=== PATIENT | female | born 1945 | race Caucasian/White ===

== ENCOUNTER 2017-06-27 12:23 | Outpatient (CLI) | payer MEDICARE, BC | END 2017-06-27 12:24 | disposition home or self-care (01) | LOC: BICMAMMO 12:23 | PROVIDERS: ATTEND Family Medicine | DX: Z12.31 Encounter for screening mammogram for malignant neoplasm of breast (principal) | CPT/HCPCS: 77063; 77067 ==

== ENCOUNTER 2018-01-18 13:22 | Emergency (ER) | payer MEDICARE, BC ==
[2018-01-18 14:24] LABS: #Basophils 0.1 thou/uL (0.0-0.2); #Eosinphils 0.3 thou/uL (0.0-0.7); #Lymphocytes 1.6 thou/uL (1.20-3.40); #Monocytes 0.7 thou/uL (0.11-0.59); %Basophils 1.2 % (0.0-1.0); %Eosinophils 4.2 % (0.0-10.0); %Lymphocytes 23.6 % (21.0-51.0); %Neutrophils 61.1 % (42.0-75.0); Hemoglobin 13.5 g/dL (12.0-16.0); Mean Corpuscular HGB CONC 33.1 g/dL (32.0-36.0); Mean Corpuscular Hemoglobin 29.3 pg (27.0-31.0); Mean Corpuscular Volume 88.7 fL (78.0-98.0); Mean Platelet Volume 8.2 fL (7.4-10.4); Platelet Count 207 thou/uL (130-400); RBC Distribution Width 12.9 % (11.5-14.5); Red Blood Cell (RBC) Count 4.61 mill/uL (4.20-5.40); White Blood Cell (WBC) Count 6.6 thou/uL (4.8-10.8)
[2018-01-18] MEDS ORDERED: Meclizine HCl 25 MG TAB ONE (14:26)
[2018-01-18] MEDS ORDERED: Ondansetron HCl/PF 4 MG/2 ML Vial ONE (14:27)
[2018-01-18 14:35] LABS: Bilirubin Negative (Negative); Blood, Urine Trace (Negative); Clarity TURBID (Clear); Glucose, Urine (Dipstick) Negative (Negative); Leukocyte Negative (Negative); Nitrite Negative (Negative); Protein, Urine (Dipstick) Trace mg/dL (Neg-Trace); Specific Gravity, Urine 1.012 (1.002-1.036); Urobilinogen 0.2 mg/dL (0.2-1.0); pH, Urine 7.5 (5.0-9.0)
[2018-01-18 14:46] LABS: ALT (SGPT) 18 U/L (8-55); AST (SGOT) 26 U/L (5-34); Albumin 4.4 g/dL (3.4-4.8); Alkaline Phosphatase 63 U/L (40-150); Anion Gap 15 mmol/L (10-20); BUN (Urea Nitrogen) 15 mg/dL (9.8-20.1); Bilirubin, Total 0.4 mg/dL (0.2-1.2); Calc. Creatinine Clearance 0 mL/min (70-130); Calcium 10.4 mg/dL (7.8-10.44); Carbon Dioxide 23 mmol/L (23-31); Chloride 105 mmol/L (98-107); Estimated GFR-MDRD 76; Glucose 100 mg/dL (83-110); Potassium 3.6 mmol/L (3.5-5.1); Protein, Total 7.4 g/dL (6.0-8.3); Sodium 139 mmol/L (136-145)
[2018-01-18 14:48] LABS: Bacteria/HPF None Seen HPF (None Seen); CKMB 0.8 ng/mL (0-6.6); Hyaline Casts/LPF 7-10 HYALINE CAST LPF (0-3 Hyaline); Pathc Cast-AUWi Flag 2.32 (0-2.49); RBC/HPF 0-3 HPF (0-3); Troponin I Less than 0.010 ng/mL (< 0.028)
[2018-01-18 14:52] LABS: Renal Epithelial None Seen HPF (0-3); Transitional Epithelial NONE SEEN HPF (0-3)
--- NOTE | 2018-01-18 15:12 | CT ---
CT HEAD WITHOUT CONTRAST: Date: 01/18/18 Multiple axial tomograms obtained through the head without IV enhancement. INDICATION: Dizziness. No comparison studies. FINDINGS: The ventricles have normal size and position. There is diffuse white matter hypodensity which is abnormal. The findings are more prominent than wou ld be expected for chronic ischemic change. Other white matter etiologies must be considered. Recomme nd urologic consultation and consider MRI brain with and without contrast. There is no hemorrhage. No evidence of acute cortical infarct. IMPRESSION: Diffuse symmetric low attenuation throughout the white matter of both cerebral hemispheres. The degre e of white matter lucency is abnormal and more than expected for chronic ischemic change. Recommend n eurologic consultation. POS: CHIDI
== END 2018-01-18 16:11 | disposition home or self-care (01) ==
LOC: ERS 13:22
DX: H81.13 Benign paroxysmal vertigo, bilateral (principal); E78.5 Hyperlipidemia, unspecified; I10 Essential (primary) hypertension; F32.9 Major depressive disorder, single episode, unspecified
CPT/HCPCS: 70450; 80053; 81003; 81015; 82553; 84443; 84484; 85025; 93005; 96361; 96374; J2405

== ENCOUNTER 2018-06-28 10:22 | Outpatient (CLI) | payer MEDICARE, BC ==
--- NOTE | 2018-07-02 13:25 | MMO ---
Bilateral MAMMO Bilat Screen [facility]. CLINICAL HISTORY: Patient is 72 years old and is seen for screening. The patient has no family history of breast cancer. The patient has no personal history of cancer. VIEWS: The views performed were: bilateral craniocaudal with tomosynthesis and bilateral mediolateral oblique with tomosynthesis. FILMS COMPARED: The present examination has been compared to prior imaging studies performed at 05/25/2009, and at [facility] on 03/31/1999, 04/06/2000, 04/05/2002, 03/31/2003, 04/01/2004, 04/05/2005, 05/27/2010, 05/31/2011, 05/16/2012, 05/20/2013, 05/21/2014, 05/22/2015, 05/23/2016 and 06/27/2017. MAMMOGRAM FINDINGS: The breasts are heterogeneously dense, which could obscure a lesion on mammography. There are stable benign appearing calcifications seen in both breasts. Stable benign densities are seen in each breast. A stable mass is seen in the right breast. There are no suspicious masses, suspicious calcifications, or new areas of architectural distortion. IMPRESSION: THERE IS NO MAMMOGRAPHIC EVIDENCE OF MALIGNANCY. A ROUTINE FOLLOW-UP MAMMOGRAM IN 1 YEAR IS RECOMMENDED. THE RESULTS OF THIS EXAM WERE SENT TO THE PATIENT. ACR BI-RADS Category 2 - Benign finding MAMMOGRAPHY NOTE: 1. A negative mammogram report should not delay a biopsy if a dominant of clinically suspicious mass is present. 2. Approximately 10% to 15% of breast cancers are not detected by mammography. 3. Adenosis and dense breasts may obscure an underlying neoplasm.
== END 2018-06-28 10:23 | disposition home or self-care (01) ==
LOC: BICMAMMO 10:22
PROVIDERS: ATTEND Family Medicine
DX: Z12.31 Encounter for screening mammogram for malignant neoplasm of breast (principal)
CPT/HCPCS: 77063; 77067

== ENCOUNTER 2019-06-22 11:30 | Emergency (ER) | payer MEDICARE, BC ==
--- NOTE | 2019-06-22 13:08 | CT ---
CT head noncontrast HISTORY: Fall. Head injury. COMPARISON: 01/18/2018. FINDINGS: There is no evidence of acute intracranial hemorrhage or infarct. Prominent widespread area s of decreased density throughout the white matter of each cerebral hemisphere similar in appearance to the previous exam. There is no mass effect or shift of midline structures. No depressed skull fractures. Visualized paranasal sinuses remain well-aerated. IMPRESSION: Prominent widespread bilateral white matter gliosis is stable. No acute traumatic injury is demonstrated.
== END 2019-06-22 13:39 | disposition home or self-care (01) ==
LOC: ERS 11:30
DX: R51 Headache (principal); I10 Essential (primary) hypertension; I48.91 Unspecified atrial fibrillation; E78.5 Hyperlipidemia, unspecified; F32.9 Major depressive disorder, single episode, unspecified; Z79.899 Other long term (current) drug therapy; Z79.82 Long term (current) use of aspirin; W01.198A Fall on same level from slipping, tripping and stumbling with subsequent striking against other object, initial encounter; Y92.009 Unspecified place in unspecified non-institutional (private) residence as the place of occurrence of the external cause
CPT/HCPCS: 70450

== ENCOUNTER 2019-07-31 11:12 | Outpatient (CLI) | payer MEDICARE, BC ==
--- NOTE | 2019-07-31 11:42 | MMO ---
Bilateral MAMMO Bilat Screen [facility]. CLINICAL HISTORY: Patient is 73 years old and is seen for screening. The patient has no family history of breast cancer. The patient has no personal history of cancer. VIEWS: The views performed were: bilateral craniocaudal with tomosynthesis and bilateral mediolateral oblique with tomosynthesis. FILMS COMPARED: The present examination has been compared to prior imaging studies performed at [facility] on 05/23/2016, 06/27/2017 and 06/28/2018. This study has been interpreted with the assistance of computer-aided detection. MAMMOGRAM FINDINGS: There are scattered fibroglandular densities. Finding 1: There are stable benign appearing calcifications seen in both breasts. Finding 2: There are stable benign appearing densities seen in both breasts. There are no suspicious masses, suspicious calcifications, or new areas of architectural distortion. IMPRESSION: THERE IS NO MAMMOGRAPHIC EVIDENCE OF MALIGNANCY. A ROUTINE FOLLOW-UP MAMMOGRAM IN 1 YEAR IS RECOMMENDED. THE RESULTS OF THIS EXAM WERE SENT TO THE PATIENT. ACR BI-RADS Category 2 - Benign finding MAMMOGRAPHY NOTE: 1. A negative mammogram report should not delay a biopsy if a dominant of clinically suspicious mass is present. 2. Approximately 10% to 15% of breast cancers are not detected by mammography. 3. Adenosis and dense breasts may obscure an underlying neoplasm. Reported by: FLAKITO LIZARRAGA MD Electonically Signed: [id number]
== END 2019-07-31 11:13 | disposition home or self-care (01) ==
LOC: BICMAMMO 11:12
PROVIDERS: ATTEND Family Medicine
DX: Z12.31 Encounter for screening mammogram for malignant neoplasm of breast (principal)
CPT/HCPCS: 77063; 77067

== ENCOUNTER 2019-08-09 10:05 | Outpatient (CLI) | payer MEDICARE, BC ==
--- NOTE | 2019-08-09 14:13 | BD ---
Exam: DEXA Bone Density 08/09/19 INDICATIONS: Postmenopausal osteoporosis screening. Lumbar Spine: BMD (g/cm2) T-SCORE L1 0.745 -2.2 L2 0.695 -3.0 L3 0.750 -3.0 L4 0.769 -2.7 L1-L4 0.741 -2.8 Femoral Neck: 0.579 -2.4 Total Femur: 0.753 -1.5 Impression: 1. Bone mineral density of the lumbar spine indicates osteoporosis. 2. Bone mineral density of the femoral neck indicates osteopenia. Ten year fracture risk: Major osteoporotic fracture: 28%. Hip fracture: 8.6%. POS: AGW
== END 2019-08-09 10:06 | disposition home or self-care (01) ==
LOC: BICMAMMO 10:05
PROVIDERS: ATTEND Internal Medicine Rheumatology
DX: M81.0 Age-related osteoporosis without current pathological fracture (principal); M85.859 Other specified disorders of bone density and structure, unspecified thigh
CPT/HCPCS: 77080

== ENCOUNTER 2020-01-17 11:41 | Inpatient (IN) | payer MEDICARE, BC, OTHER ==
--- NOTE | 2020-01-17 12:10 | RAD ---
Chest one view HISTORY: Weakness and cough. COMPARISON: 12/01/2018. FINDINGS: Cardiac silhouette is magnified by projection. Pulmonary vasculature is unremarkable. Mediastinum is midline with aortic calcification. No lobar consolidation or evidence of pneumothorax. IMPRESSION : Atherosclerosis. No active cardiopulmonary abnormalities are otherwise demonstrated.
[2020-01-17 12:14] LABS: #Lymphocytes 0.5 thou/uL (1.20-3.40); #Monocytes 0.6 thou/uL (0.11-0.59); #Neutrophils 8.7 thou/uL (1.40-6.50); %Basophils 0.3 % (0.0-1.0); %Eosinophils 0.3 % (0.0-10.0); %Lymphocytes 4.6 % (21.0-51.0); %Monocytes 6.2 % (0.0-10.0); %Neutrophils 88.6 % (42.0-75.0); Hemoglobin 13.8 g/dL (12.0-16.0); Mean Corpuscular HGB CONC 32.6 g/dL (32.0-36.0); Mean Corpuscular Hemoglobin 28.8 pg (27.0-31.0); Mean Corpuscular Volume 88.3 fL (78.0-98.0); Mean Platelet Volume 9.1 fL (7.4-10.4); Platelet Count 158 thou/uL (130-400); RBC Distribution Width 13.3 % (11.5-14.5); Red Blood Cell (RBC) Count 4.78 mill/uL (4.20-5.40); White Blood Cell (WBC) Count 9.8 thou/uL (4.8-10.8)
[2020-01-17 12:47] LABS: ALT (SGPT) 21 U/L (8-55); AST (SGOT) 30 U/L (5-34); Albumin 4.3 g/dL (3.4-4.8); Alkaline Phosphatase 53 U/L (40-110); Anion Gap 12 mmol/L (10-20); BUN (Urea Nitrogen) 12 mg/dL (9.8-20.1); Bilirubin, Total 0.5 mg/dL (0.2-1.2); Calc. Creatinine Clearance 0 mL/min (70-130); Calcium 9.2 mg/dL (7.8-10.44); Carbon Dioxide 22 mmol/L (23-31); Chloride 105 mmol/L (98-107); Estimated GFR-MDRD 77; Globulin 2.4 g/dL (2.4-3.5); Glucose 137 mg/dL (83-110); Lipase 23 U/L (8-78); Potassium 3.8 mmol/L (3.5-5.1); Protein, Total 6.7 g/dL (6.0-8.3); Sodium 135 mmol/L (136-145)
[2020-01-17 13:02] LABS: Bilirubin Negative (Negative); Blood, Urine 1+ (Negative); Clarity Clear (Clear); Glucose, Urine (Dipstick) Normal (Negative); Ketone, Urine 10 mg/dL (Negative); Leukocyte 25 Leu/uL (Negative); Nitrite Negative (Negative); Protein, Urine (Dipstick) 30 mg/dL (Neg-Trace); Specific Gravity, Urine 1.027 (1.002-1.036); Squamous Epithelial 0-3 HPF (0-3); Urobilinogen Normal mg/dL (Less than 2); pH, Urine 6.5 (5.0-9.0)
[2020-01-17 13:23] LABS: Bacteria/HPF 1+ HPF (None Seen)
--- NOTE | 2020-01-17 14:16 | CT ---
CT HEAD WITHOUT IV CONTRAST COMPARISON: 06/22/2019 HISTORY: Headache and generalized weakness. Trouble getting words out. Nausea. TECHNIQUE: Axial CT imaging at 5 mm intervals from vertex through skull base without contrast FINDINGS: There is confluent decreased attenuation in the periventricular white matter which is nonspecific but likely reflective of severe chronic small vessel ischemic changes similar to prior study. Given degree of chronic white matter ischemic changes, a superimposed acute white matter ischemic event wou ld be difficult to exclude. There is mild cerebral volume loss not unexpected for patient's age. The ventricular system is normal in size, shape, and position for the degree of sulcal atrophy. There is no evidence of an acute cortical infarction, hemorrhage, mass effect, or midline shift. Skull base has a normal CT appearance. Visualized paranasal sinuses are clear. Osseous structures appear intact. CT head is stable compared to prior exam IMPRESSION: 1. No acute intracranial abnormality demonstrated. 2. Chronic finding unchanged from prior study.
[2020-01-17] MEDS ORDERED: Aspirin Chewable 81 MG TAB ONE (15:08)
[2020-01-17] MEDS ORDERED: hydrALAZINE 20 MG/ML VIAL SLOW IVP PRN (15:41)
[2020-01-17] MEDS ORDERED: Labetalol HCl 100 MG/20 ML VIAL SLOW IVP PRN (16:08)
[2020-01-17] MEDS ORDERED: ALPRAZolam 0.25 MG TAB PO PRN (16:10)
[2020-01-17 16:11] VITALS: BMI 29.7
[2020-01-17] MEDS ORDERED: Dronedarone HCl 400 MG TAB PO SCH (17:00)
[2020-01-17 17:24] LABS: Troponin I Less than 0.010 ng/mL (< 0.028)
--- NOTE | 2020-01-17 18:08 | ULT ---
US Carotid Doppler STANDARD History: Cerebrovascular accident Comparison: None. Findings: Real-time grayscale, color and spectral analysis of the extracranial carotid and vertebral arteries was performed. No elevated peak systolic velocities within the internal carotid arteries. Antegrade flow both verteb ral arteries. Impression: No hemodynamically significant stenosis.
[2020-01-17 20:26] LABS: Troponin I Less than 0.010 ng/mL (< 0.028)
[2020-01-17] MEDS: Apixaban 5 MG TAB PO SCH (21:15)
--- NOTE | 2020-01-17 22:51 | HP ---
CHIEF COMPLAINT: Inability to speak well. HISTORY OF PRESENT ILLNESS: The patient is a 74-year-old female with past medical history of hypothyroidism, pulmonary hypertension, hyperlipidemia, hypertension, and atrial fibrillation, who was brought to the hospital today by her family due to inability to speak clearly since waking up this morning. The patient was apparently in her usual state of health until last night where she was able to walk without problem and was speaking clearly. However, this morning, the patient was unsteady on her gait and was unable to form complete sentences and had trouble finding words. She denied chest pain, shortness of breath, palpitations, or dizziness. She also denies vertigo. The patient is on Eliquis for anticoagulation. REVIEW OF SYSTEMS: Negative except as noted in HPI. PAST MEDICAL HISTORY: Pulmonary hypertension, hypertension, leaky heart valves, hyperlipidemia, bladder spasms, atrial fibrillation, hand tremors, and hypothyroidism. PAST SURGICAL HISTORY: Cholecystectomy, hysterectomy, and thyroidectomy. SOCIAL HISTORY: The patient lives at home with her family. Denies alcohol use, illicit drug use, or smoking. ALLERGIES: THE PATIENT IS ALLERGIC TO FLAGYL, PENICILLIN, STATINS, AND SULFA. PHYSICAL EXAMINATION: GENERAL: The patient is alert and oriented x2. HEENT: Head is normocephalic and atraumatic. Extraocular muscles are intact. NECK: Supple. CHEST: Clear to auscultation bilaterally. CARDIOVASCULAR: Reveals normal S1 and S2 with regular rate and rhythm. ABDOMEN: Soft, nontender, and nondistended. NEUROLOGICAL: Examination reveals expressive aphasia with no cranial nerve abnormalities. No focal motor deficits were noted. PERTINENT DATA: CT scan of the brain shows extensive white matter changes with superimposed acute white matter ischemia not being excluded. ASSESSMENT: 1. Expressive aphasia, rule out cerebrovascular accident. 2. Hypertension. 3. Hyperlipidemia. 4. Pulmonary hypertension. 5. Hypothyroidism. PLAN: 1. The patient will be placed on the Telemetry Stroke Floor. 2. Start aspirin 325 mg orally daily. We will not initiate statins due to the patient's allergies. 3. Neuro checks q.4 hours. 4. We will allow permissive hypertension and manage with IV labetalol for systolic blood pressure greater than 220 or diastolic greater than 120. 5. Check echocardiogram, carotid duplex studies, and MRI of the brain in the morning. 6. Check lipid profile and A1c. 7. PT, OT, and Speech evaluation and treatment. 8. Consult Neurology. 9. The patient is already therapeutically anticoagulated so no more measures of DVT prophylaxis will be implemented. Job ID: [id number]
[2020-01-18 05:05] LABS: Hemoglobin A1c 5.7 % (4.0-6.0)
[2020-01-18 05:16] LABS: Cardiac Risk 2.7 (Less than 4.5)
[2020-01-18] MEDS: Levothyroxine Sodium 50 MCG TAB PO SCH (06:28)
--- NOTE | 2020-01-18 07:46 | PDOC.HOSPP ---
- Subjective Encounter Date: 01/18/20 Encounter Time: 07:44 Subjective: Patient seen and examined. No new complaints. No overnight events. Patient reports symptoms resolved, she feels her speech is baseline. Denies headache, vision changes, difficulty swallowing, no focal motor weakness. Denies chest pain, heart palpitations, SOB. Endorses some diarrhea, denies abdominal pain, N/V or dysuria. Discussed UA results and awaiting cultures. - Objective Vital Signs & Weight: Vital Signs (12 hours) Temp Pulse Resp BP Pulse Ox 01/18/20 07:35 97.9 F 77 14 136/62 96 01/18/20 04:00 99.3 F 76 21 H 163/71 H 98 01/18/20 00:00 98.9 F 82 17 131/60 96 01/17/20 20:00 99.6 F 84 23 H 153/67 H 96 Weight Weight 173 lb I&O: 01/17/20 01/18/20 01/19/20 06:59 06:59 06:59 Intake Total 400 Balance 400 Result Diagrams: 01/17/20 12:04 01/17/20 12:04 Additional Labs: Accuchecks 01/17/20 21:50 POC Glucose 139 H Hospitalist ROS - Review of Systems Constitutional: denies: fever, chills Respiratory: denies: cough, shortness of breath, hemoptysis Cardiovascular: denies: chest pain, palpitations, edema Gastrointestinal: reports: diarrhea. denies: nausea, vomiting, abdominal pain Genitourinary: denies: dysuria Neurological: denies: weakness, numbness, incoordination, change in speech - Medication Medications: Active Medications Generic Name Dose Route Start Last Admin Trade Name Freq PRN Reason Stop Dose Admin Apixaban 5 mg 01/17/20 21:00 01/17/20 21:15 Apixaban 5 Mg Tab PO 5 mg BID KANNAN Administration Levothyroxine Sodium 50 mcg 01/18/20 06:00 01/18/20 06:28 Levothyroxine Sodium 50 Mcg Tab PO 50 mcg 0600 KANNAN Administration - Exam General Appearance: NAD, awake alert Eye: anicteric sclera ENT: normocephalic atraumatic Neck: supple, symmetric Heart: RRR, no murmur, no gallops, no rubs, normal peripheral pulses Respiratory: CTAB, no wheezes, no rales, no ronchi, normal chest expansion, no tachypnea Gastrointestinal: soft, non-tender, non-distended, normal bowel sounds, no guarding, no rigidity Extremities: no cyanosis, no edema Skin: no rashes Neurological: cranial nerve grossly intact, no weakness, no focal deficits. negative: facial droop Musculoskeletal: normal tone, normal strength Psychiatric: normal affect, A&O x 3 Hosp A/P (1) TIA (transient ischemic attack) Code(s): G45.9 - TRANSIENT CEREBRAL ISCHEMIC ATTACK, UNSPECIFIED Status: Acute (2) HTN (hypertension) Code(s): I10 - ESSENTIAL (PRIMARY) HYPERTENSION Status: Chronic (3) HLD (hyperlipidemia) Code(s): E78.5 - HYPERLIPIDEMIA, UNSPECIFIED Status: Chronic (4) Pulmonary HTN Code(s): I27.20 - PULMONARY HYPERTENSION, UNSPECIFIED Status: Chronic (5) Hypothyroidism Code(s): E03.9 - HYPOTHYROIDISM, UNSPECIFIED Status: Chronic (6) Atrial fibrillation Code(s): I48.91 - UNSPECIFIED ATRIAL FIBRILLATION Status: Chronic - Plan #TIA Expressive aphasia, resolved NIH 0 MRI and echo pending Stroke team and neurology consulted continue Eliquis and baby aspirin Check b12 and folate UCX pending - patient asymptomatic, therapy according to CX. #HTN BP 163/71, no morning meds Takes metoprolol and norvasc at home. Will restart home BB continue to monitor BP. #HLD Takes home crestor. Will restart home statin. #Pulmonary HTN chronic, appears stable. #Hypothyroidism Continue home dose levothyroxine. Check TSH level. #Atrial fibrillation Currently NSR Continue home eliquis. Discussed case with Dr. Puente.
[2020-01-18] MEDS ORDERED: Aspirin 325 mg Enteric Coated Tablet PO SCH (09:00)
[2020-01-18] MEDS ORDERED: FLU VACC QS2020-21(65YR UP)/PF 240 MCG/0.7 ML SYRINGE IM ONE (09:00)
[2020-01-18] MEDS: Ubidecarenone 50 MG CAP PO SCH (10:10)
[2020-01-18] MEDS: Cholecalciferol 1,000 UNITS (25 MCG) TAB PO SCH (10:10)
[2020-01-18] MEDS: Aspirin 81 mg Enteric Coated Tablet PO SCH (10:11)
[2020-01-18] MEDS: Apixaban 5 MG TAB PO SCH ×2 (10:11→21:58)
--- NOTE | 2020-01-18 11:53 | MRI ---
MRI BRAIN NONCONTRAST: DATE: 01/18/2020 HISTORY: 74-year-old female with dysarthria FINDINGS: There is no obstructive hydrocephalus. There is no midline shift or any other evidence of mass effect . There is no extra-axial fluid collection. There are extensive, confluent T2-hyperintensities throughout the cerebral white matter consistent with severe chronic ischemic white matter changes due to microvascular atherosclerosis. These have significantly worsened compared to 06/02/2004, when there are already severe. There is diffuse brain parenchymal volume loss. There is no evidence of rec ent hemorrhage or restricted diffusion. IMPRESSION: 1) Involutional changes and very severe chronic ischemic white matter changes. 2) otherwise negative
[2020-01-18 15:24] LABS: SARS-CoV-2 MS2 Positive; SARS-CoV-2 N Gene Negative; SARS-CoV-2 S Gene Negative; SARS-CoV-2 by NAA Not Detected (NotDetected); SARS-CoV-2 orf1ab Negative
[2020-01-18] MEDS ORDERED: Rosuvastatin 5 MG TAB PO SCH (21:00)
[2020-01-19] MEDS ORDERED: Acetaminophen 500 MG TAB PO PRN (00:34)
[2020-01-19 05:02] LABS: #Basophils 0.1 thou/uL (0.0-0.2); #Monocytes 0.8 thou/uL (0.11-0.59); #Neutrophils 3.8 thou/uL (1.40-6.50); %Eosinophils 0.3 % (0.0-10.0); %Lymphocytes 17.4 % (21.0-51.0); %Monocytes 13.3 % (0.0-10.0); Hemoglobin 12.8 g/dL (12.0-16.0); Mean Corpuscular HGB CONC 33.9 g/dL (32.0-36.0); Mean Corpuscular Hemoglobin 29.4 pg (27.0-31.0); Mean Corpuscular Volume 86.7 fL (78.0-98.0); Mean Platelet Volume 8.5 fL (7.4-10.4); Platelet Count 154 thou/uL (130-400); RBC Distribution Width 13.2 % (11.5-14.5); Red Blood Cell (RBC) Count 4.36 mill/uL (4.20-5.40); White Blood Cell (WBC) Count 5.6 thou/uL (4.8-10.8)
[2020-01-19 05:22] LABS: Anion Gap 14 mmol/L (10-20); BUN (Urea Nitrogen) 14 mg/dL (9.8-20.1); Calc. Creatinine Clearance 96 mL/min (70-130); Calcium 9.1 mg/dL (7.8-10.44); Carbon Dioxide 19 mmol/L (23-31); Chloride 106 mmol/L (98-107); Estimated GFR-MDRD Greater than 90; Glucose 105 mg/dL (83-110); Sodium 136 mmol/L (136-145)
[2020-01-19 05:29] LABS: Potassium 2.6 mmol/L (3.5-5.1)
[2020-01-19 05:47] LABS: Thyroid Stimulating Hormone 1.8427 uIU/mL (0.35-4.94)
[2020-01-19] MEDS ORDERED: Electrolyte Replacement Protoc 1 EACH EACH FS PRN (05:51)
[2020-01-19] MEDS: Levothyroxine Sodium 50 MCG TAB PO SCH (05:59)
[2020-01-19] MEDS ORDERED: Potassium Chloride 20 MEQ TAB PO SCH (06:00)
[2020-01-19] MEDS: Ubidecarenone 50 MG CAP PO SCH (08:49)
[2020-01-19] MEDS: Apixaban 5 MG TAB PO SCH ×2 (08:49→21:07)
[2020-01-19] MEDS: Cholecalciferol 1,000 UNITS (25 MCG) TAB PO SCH (08:50)
[2020-01-19] MEDS: Aspirin 81 mg Enteric Coated Tablet PO SCH (08:50)
[2020-01-19 11:13] LABS: Potassium 2.9 mmol/L (3.5-5.1)
[2020-01-19] MEDS: Potassium Chloride 20 MEQ TAB PO SCH ×2 (12:49→15:57)
[2020-01-19] MEDS ORDERED: Loperamide HCl 2 MG CAP PO SCH (16:00)
--- NOTE | 2020-01-19 16:05 | PDOC.HOSPP ---
- Subjective Encounter Date: 01/19/20 Encounter Time: 16:03 Subjective: Ms. Silver was seen today in follow-up of trouble with word finding, and weakness. She says she is back to her normal self. - Objective Vital Signs & Weight: Vital Signs (12 hours) Temp Pulse Pulse Pulse Resp BP BP 01/19/20 15:45 97.4 F L 68 16 01/19/20 11:24 98.1 F 70 14 01/19/20 11:01 66 70 127/59 L 132/60 01/19/20 08:00 97.4 F L 70 18 BP Pulse Ox 01/19/20 15:45 133/60 96 01/19/20 11:24 132/60 96 01/19/20 11:01 01/19/20 08:00 168/71 H 98 Weight Weight 173 lb I&O: 01/18/20 01/19/20 01/20/20 06:59 06:59 06:59 Intake Total 400 1050 Balance 400 1050 Result Diagrams: 01/19/20 04:43 01/19/20 10:30 Hospitalist ROS - Medication Medications: Active Medications Generic Name Dose Route Start Last Admin Trade Name Freq PRN Reason Stop Dose Admin Acetaminophen 500 mg 01/19/20 00:34 01/19/20 01:02 Acetaminophen 500 Mg Tab PO 500 mg Q6H PRN Administration Fever/Mild Pain (1-3) Alprazolam 0.25 mg 01/17/20 16:10 01/18/20 10:28 Alprazolam 0.25 Mg Tab PO 0.25 mg BIDPRN PRN Administration Anxiety Apixaban 5 mg 01/17/20 21:00 01/19/20 08:49 Apixaban 5 Mg Tab PO 5 mg BID KANNAN Administration Aspirin 81 mg 01/18/20 09:00 01/19/20 08:50 Aspirin 81 Mg Enteric Coated Tablet PO 81 mg DAILY KANNAN Administration Cholecalciferol 3,000 units 01/18/20 09:00 01/19/20 08:50 Cholecalciferol 1,000 Units (25 Mcg) Tab PO 3,000 units DAILY KANNAN Administration Coenzyme Q10 200 mg 01/18/20 09:00 01/19/20 08:49 Ubidecarenone 50 Mg Cap PO 200 mg DAILY KANNAN Administration Levothyroxine Sodium 50 mcg 01/18/20 06:00 01/19/20 05:59 Levothyroxine Sodium 50 Mcg Tab PO 50 mcg 0600 KANNAN Administration Loperamide HCl 4 mg 01/19/20 16:00 01/19/20 15:57 Loperamide Hcl 2 Mg Cap PO 01/19/20 18:00 4 mg NOW KANNAN Administration Metoprolol Succinate 25 mg 01/18/20 09:00 01/19/20 08:49 Metoprolol Succinate Xl 25 Mg Tab PO 25 mg DAILY KANNAN Administration Rosuvastatin Calcium 5 mg 01/18/20 21:00 01/18/20 21:58 Rosuvastatin 5 Mg Tab PO 5 mg Q2DAYS@2100 KANNAN Administration Sertraline HCl 75 mg 01/18/20 09:00 01/19/20 08:49 Sertraline Hcl 25 Mg Tab PO 75 mg DAILY KANNAN Administration - Exam Eye: PERRL, anicteric sclera Heart: RRR, no murmur, no gallops, no rubs, normal peripheral pulses Respiratory: CTAB, no wheezes, no rales, no ronchi, normal chest expansion, no tachypnea, normal percussion Gastrointestinal: soft, non-tender, non-distended, normal bowel sounds, no palpable masses, no hepatomegaly Extremities: no cyanosis, no edema Hosp A/P (1) TIA (transient ischemic attack) Code(s): G45.9 - TRANSIENT CEREBRAL ISCHEMIC ATTACK, UNSPECIFIED Status: Acute (2) Atrial fibrillation Code(s): I48.91 - UNSPECIFIED ATRIAL FIBRILLATION Status: Chronic (3) HLD (hyperlipidemia) Code(s): E78.5 - HYPERLIPIDEMIA, UNSPECIFIED Status: Chronic (4) HTN (hypertension) Code(s): I10 - ESSENTIAL (PRIMARY) HYPERTENSION Status: Chronic (5) Hypothyroidism Code(s): E03.9 - HYPOTHYROIDISM, UNSPECIFIED Status: Chronic (6) Pulmonary HTN Code(s): I27.20 - PULMONARY HYPERTENSION, UNSPECIFIED Status: Chronic - Plan * TIA- patient is back to her baseline. She is currently on Eliquis for stroke prevention * Her LDL is not at goal. She now takes Crestor 5mg 3 times a week. Can increase this up to M-F * AFIB- stable * Hypokalemia- likely from diarrheal losses. C. Diff screen was negative- replace and check serum Magnesium * Likely home later today
--- NOTE | 2020-01-19 17:47 | PDOC.EVN ---
Event Note - Event Note Event Note: Case discussed with On-call Fishing Vessel Operator. Patient had a TIA while on Eliquis. The patient tells me she has been complaint with the medication. She is recommending getting a NAKITA to assess for left atrial appendage while she is in the hospital. Will leave her NPO tonight, and order the NAKITA for tomorrow
[2020-01-19 17:54] LABS: Potassium 4.1 mmol/L (3.5-5.1)
[2020-01-19] MEDS ORDERED: Famotidine 20 MG TAB PO SCH (21:30)
[2020-01-20] MEDS ORDERED: Sodium Chloride 0.9% 1,000 ML IV SCH
[2020-01-20 05:37] LABS: Carbon Dioxide 17 mmol/L (23-31); Chloride 111 mmol/L (98-107); Sodium 136 mmol/L (136-145)
[2020-01-20 05:38] LABS: Anion Gap 12 mmol/L (10-20); BUN (Urea Nitrogen) 16 mg/dL (9.8-20.1); Calc. Creatinine Clearance 96 mL/min (70-130); Calcium 8.8 mg/dL (7.8-10.44); Estimated GFR-MDRD Greater than 90; Glucose 97 mg/dL (83-110)
[2020-01-20 05:47] LABS: Band 16 % (5-11); Eosinophils 3 % (0-10); Hemoglobin 12.1 g/dL (12.0-16.0); Lymphocytes 28 % (21-51); MDiff Complete? YES; Mean Corpuscular HGB CONC 34.2 g/dL (32.0-36.0); Mean Corpuscular Hemoglobin 29.7 pg (27.0-31.0); Mean Corpuscular Volume 86.9 fL (78.0-98.0); Mean Platelet Volume 9.2 fL (7.4-10.4); Monocytes 12 % (0-10); Neutrophil 41 % (42-75); Platelet Count 153 thou/uL (130-400); RBC Distribution Width 13.2 % (11.5-14.5); Red Blood Cell (RBC) Count 4.09 mill/uL (4.20-5.40); White Blood Cell (WBC) Count 4.3 thou/uL (4.8-10.8)
[2020-01-20] MEDS: Levothyroxine Sodium 50 MCG TAB PO SCH (05:55)
[2020-01-20] MEDS ORDERED: Famotidine 20 MG TAB PO SCH (09:00)
--- NOTE | 2020-01-20 09:44 | CON ---
DATE OF CONSULTATION: HISTORY OF PRESENT ILLNESS: The patient is a 74-year-old woman, who presents for evaluation after having difficulty speaking and weakness. The patient has a history of paroxysmal atrial fibrillation. She is on chronic anticoagulation therapy. The patient was in her usual state of health and a few weeks ago, she had an episode of diverticulitis. The patient presented to the hospital with acute onset of extreme weakness and she had difficulty speaking. The patient denied having any chest discomfort or palpitations. PAST MEDICAL HISTORY: 1. Atrial fibrillation. 2. Hypertension. 3. Dyslipidemia. 4. Hypothyroidism. PAST SURGICAL HISTORY: Cholecystectomy, thyroidectomy, and hysterectomy. SOCIAL HISTORY: Nonsmoker. ALLERGIES: PENICILLIN, FLAGYL, AND SULFA. MEDICATIONS: On admission include: 1. Metoprolol 25 XL daily. 2. Norvasc 2.5 daily. 3. Sertraline 75 daily. 4. Rosuvastatin 5 daily. 5. Synthroid 50 mcg daily. 6. Eliquis 5 b.i.d. REVIEW OF SYSTEMS: 10-point system otherwise unremarkable. No easy bruising or bleeding or bright red blood per rectum. PHYSICAL EXAMINATION: GENERAL: Well-developed woman, in no acute distress. VITAL SIGNS: Blood pressure was 135/61. NECK: Showed no jugular venous distention. LUNGS: Clear to auscultation. HEART: Regular rate and rhythm. Normal S1 and S2. 1/6 systolic murmur. ABDOMEN: Nondistended. EXTREMITIES: Show trace edema. VASCULAR: Radial pulses 2+. LABORATORY DATA: Sodium was 136, potassium 2.6, chloride 106, bicarbonate 19, BUN 14, creatinine 0.63. Troponin less than 0.01. White blood cell count was 4.3, hemoglobin 12.1, hematocrit 35.5, platelets 133. EKG normal sinus rhythm with a nonspecific ST abnormality. Echocardiogram normal left ventricular ejection fraction 55% to 60%, mild mitral and aortic regurgitation. IMPRESSION: 1. Possible transient ischemic attack. 2. History of paroxysmal atrial fibrillation. 3. Hypertension. 4. Dyslipidemia. 5. Hypokalemia. 6. Urinary tract infection. 7. Diverticulitis. PLAN: This patient had a possible TIA. She is undergoing neurology evaluation. The patient is on chronic Eliquis and chronic anticoagulation therapy. Aspirin has been added to her medical regimen. The patient has had difficulty with lipid-lowering medication. We will try to increase the dose of her statin. We will proceed with a NAKITA to make sure there is no evidence of a PFO. From a cardiac standpoint, we will follow this patient with you through her hospitalization. Job ID: [id number] SHAYNA
--- NOTE | 2020-01-20 12:39 | CON ---
NEUROLOGY CONSULTATION DATE OF CONSULTATION: 01/20/2020 REASON FOR CONSULTATION: Transient ischemic attack. HISTORY OF PRESENT ILLNESS: Ms. Silver is a 74-year-old female with medical history significant for hypothyroidism, pulmonary hypertension, hypertension, hyperlipidemia, and atrial fibrillation, presented to the hospital on 01/17/2020 because of inability to speak clearly when she woke up in the morning. Apparently, the patient was in usual state of health the night before the admission and she was able to walk without problems and had normal speech. However, in the morning, when she woke up, she was extremely unsteady of her feet and was unable to speak in full word sentences and has trouble finding words. The patient denies focal numbness, focal weakness, nausea, vomiting, headache, chest pain, abdominal pain, vertigo, problems with swallowing, blurred vision, loss of vision, loss of consciousness, or abnormal involuntary movements associated with the episode. The symptoms resolved within 24 hours per daughter, and currently, she is back to her baseline. The patient takes Eliquis for atrial fibrillation. REVIEW OF SYSTEMS: All 14 systems were reviewed and were negative except the pertinent positives and negatives mentioned in the HPI. PAST MEDICAL HISTORY: Pulmonary hypertension, hypertension, hyperlipidemia, bladder spasms, atrial fibrillation, tremors, hypothyroidism, leaking heart valves. PAST SURGICAL HISTORY: Cholecystectomy, hysterectomy, and thyroidectomy. SOCIAL HISTORY: The patient lives at home with her . Denies smoking, alcohol, or illegal drug use. ALLERGIES: FLAGYL, PENICILLIN, STATINS, AND SULFA DRUGS. Vital Signs & Weight: Vital Signs (12 hours) Temp Pulse Resp BP Pulse Ox 01/20/20 11:36 98 F 66 16 147/67 H 97 01/20/20 07:43 97.9 F 72 16 135/61 99 01/20/20 04:00 97.9 F 69 16 128/60 97 Weight Weight 173 lb I&O: 01/19/20 01/20/20 01/21/20 06:59 06:59 06:59 Intake Total 1050 Balance 1050 Active Medications Generic Name Dose Route Start Last Admin Trade Name Freq PRN Reason Stop Dose Admin Acetaminophen 500 mg 01/19/20 00:34 01/19/20 01:02 Acetaminophen 500 Mg Tab PO 500 mg Q6H PRN Administration Fever/Mild Pain (1-3) Alprazolam 0.25 mg 01/17/20 16:10 01/18/20 10:28 Alprazolam 0.25 Mg Tab PO 0.25 mg BIDPRN PRN Administration Anxiety Apixaban 5 mg 01/17/20 21:00 01/19/20 21:07 Apixaban 5 Mg Tab PO 5 mg BID KANNAN Administration Cholecalciferol 3,000 units 01/18/20 09:00 01/19/20 08:50 Cholecalciferol 1,000 Units (25 Mcg) Tab PO 3,000 units DAILY KANNAN Administration Coenzyme Q10 200 mg 01/18/20 09:00 01/19/20 08:49 Ubidecarenone 50 Mg Cap PO 200 mg DAILY KANNAN Administration Sodium Chloride 1,000 mls @ 50 mls/hr 01/20/20 00:00 01/20/20 00:13 Normal Saline 0.9% IV 1,000 mls .Q20H KANNAN Administration Levothyroxine Sodium 50 mcg 01/18/20 06:00 01/20/20 05:55 Levothyroxine Sodium 50 Mcg Tab PO 50 mcg 0600 KANNAN Administration Metoprolol Succinate 25 mg 01/18/20 09:00 01/19/20 08:49 Metoprolol Succinate Xl 25 Mg Tab PO 25 mg DAILY KANNAN Administration Rosuvastatin Calcium 5 mg 01/18/20 21:00 01/18/20 21:58 Rosuvastatin 5 Mg Tab PO 5 mg Q2DAYS@2100 KANNAN Administration Sertraline HCl 75 mg 01/18/20 09:00 01/19/20 08:49 Sertraline Hcl 25 Mg Tab PO 75 mg DAILY KANNAN Administration Sodium Chloride 10 ml 01/17/20 15:41 01/19/20 21:07 Flush - Normal Saline 10 Ml Syringe IVF 10 ml PRN PRN Administration Saline Flush PHYSICAL EXAMINATION: Eye: PERRL, anicteric sclera Heart: RRR, no murmur, no gallops, no rubs, normal peripheral pulses Respiratory: CTAB, no wheezes, no rales, no ronchi, normal chest expansion, no tachypnea Gastrointestinal: soft, non-tender, non-distended, normal bowel sounds, no palpable masses Extremities: no cyanosis, no edema Neurological: Mental status, the patient is alert and oriented to person, place, and time. Recent and remote memory, clear. Fund of knowledge is appropriate. Speech is clear. Cranial nerves II through XII intact. Motor, muscle tone and bulk are normal. Strength 5/5 bilaterally. Sensory intact. Cerebellar, finger-nose testing intact. Gait deferred due to the patient's safety reason. DATA REVIEWED: I reviewed the CT scan, which was negative for acute intracranial pathology. MRI of the brain reviewed, which was negative for acute intracranial pathology. 2D echo showed ejection fraction of 50% to 55% and moderately dilated left atrium. Carotid Doppler did not reveal hemodynamically significant stenosis. ASSESSMENT AND PLAN: (1) TIA (transient ischemic attack) Code(s): G45.9 - TRANSIENT CEREBRAL ISCHEMIC ATTACK, UNSPECIFIED Status: Acute (2) Atrial fibrillation Code(s): I48.91 - UNSPECIFIED ATRIAL FIBRILLATION Status: Chronic (3) HLD (hyperlipidemia) Code(s): E78.5 - HYPERLIPIDEMIA, UNSPECIFIED Status: Chronic (4) HTN (hypertension) Code(s): I10 - ESSENTIAL (PRIMARY) HYPERTENSION Status: Chronic (5) Hypothyroidism Code(s): E03.9 - HYPOTHYROIDISM, UNSPECIFIED Status: Chronic (6) Pulmonary HTN Code(s): I27.20 - PULMONARY HYPERTENSION, UNSPECIFIED Status: Chronic Ms. Manju Silver is a 74-year-old female, who presented with an episode of expressive aphasia and unsteady gait with mild confusion, which resolved on its own. Currently, she is back to her baseline, most likely transient ischemic attack. MRI of the brain reviewed and was negative for acute intracranial pathology. Carotid Doppler did not reveal hemodynamically significant stenosis. 2D echo showed left ventricular ejection fraction 50% to 55%. NAKITA is recommended by Cardiology. Dr. Cassidy is currently on board for cardiology workup. Continue aspirin for secondary stroke prevention. Continue Eliquis for secondary stroke prevention and atrial fibrillation. Consider adding statin if the patient tolerates for secondary stroke prevention. Neuro checks every 4 hours. Continue home medications, telemetry. Continue medical management per primary team, PT/OT/Speech. Plan discussed in detail with the patient, daughter, and the nursing staff. We will continue to follow. Thank you for the consult. Job ID: [id number] [email or web address]
--- NOTE | 2020-01-20 12:43 | PDOC.HOSPP ---
- Subjective Encounter Date: 01/20/20 Encounter Time: 12:40 Subjective: Ms. Silver was seen today in follow-up of TIA while on Eliquis. She does not have any new complaints. - Objective Vital Signs & Weight: Vital Signs (12 hours) Temp Pulse Resp BP Pulse Ox 01/20/20 11:36 98 F 66 16 147/67 H 97 01/20/20 07:43 97.9 F 72 16 135/61 99 01/20/20 04:00 97.9 F 69 16 128/60 97 Weight Weight 173 lb I&O: 01/19/20 01/20/20 01/21/20 06:59 06:59 06:59 Intake Total 1050 Balance 1050 Result Diagrams: 01/20/20 04:33 01/20/20 04:33 Hospitalist ROS - Medication Medications: Active Medications Generic Name Dose Route Start Last Admin Trade Name Freq PRN Reason Stop Dose Admin Acetaminophen 500 mg 01/19/20 00:34 01/19/20 01:02 Acetaminophen 500 Mg Tab PO 500 mg Q6H PRN Administration Fever/Mild Pain (1-3) Alprazolam 0.25 mg 01/17/20 16:10 01/18/20 10:28 Alprazolam 0.25 Mg Tab PO 0.25 mg BIDPRN PRN Administration Anxiety Apixaban 5 mg 01/17/20 21:00 01/19/20 21:07 Apixaban 5 Mg Tab PO 5 mg BID KANNAN Administration Cholecalciferol 3,000 units 01/18/20 09:00 01/19/20 08:50 Cholecalciferol 1,000 Units (25 Mcg) Tab PO 3,000 units DAILY KANNAN Administration Coenzyme Q10 200 mg 01/18/20 09:00 01/19/20 08:49 Ubidecarenone 50 Mg Cap PO 200 mg DAILY KANNAN Administration Sodium Chloride 1,000 mls @ 50 mls/hr 01/20/20 00:00 01/20/20 00:13 Normal Saline 0.9% IV 1,000 mls .Q20H KANNAN Administration Levothyroxine Sodium 50 mcg 01/18/20 06:00 01/20/20 05:55 Levothyroxine Sodium 50 Mcg Tab PO 50 mcg 0600 KANNAN Administration Metoprolol Succinate 25 mg 01/18/20 09:00 01/19/20 08:49 Metoprolol Succinate Xl 25 Mg Tab PO 25 mg DAILY KANNAN Administration Rosuvastatin Calcium 5 mg 01/18/20 21:00 01/18/20 21:58 Rosuvastatin 5 Mg Tab PO 5 mg Q2DAYS@2100 KANNAN Administration Sertraline HCl 75 mg 01/18/20 09:00 01/19/20 08:49 Sertraline Hcl 25 Mg Tab PO 75 mg DAILY KANNAN Administration Sodium Chloride 10 ml 01/17/20 15:41 01/19/20 21:07 Flush - Normal Saline 10 Ml Syringe IVF 10 ml PRN PRN Administration Saline Flush - Exam Eye: PERRL, anicteric sclera Heart: RRR, no murmur, no gallops, no rubs, normal peripheral pulses Respiratory: CTAB, no wheezes, no rales, no ronchi, normal chest expansion, no tachypnea Gastrointestinal: soft, non-tender, non-distended, normal bowel sounds, no palpable masses Extremities: no cyanosis, no edema Neurological: no focal deficits Hosp A/P (1) TIA (transient ischemic attack) Code(s): G45.9 - TRANSIENT CEREBRAL ISCHEMIC ATTACK, UNSPECIFIED Status: Acute (2) Atrial fibrillation Code(s): I48.91 - UNSPECIFIED ATRIAL FIBRILLATION Status: Chronic (3) HLD (hyperlipidemia) Code(s): E78.5 - HYPERLIPIDEMIA, UNSPECIFIED Status: Chronic (4) HTN (hypertension) Code(s): I10 - ESSENTIAL (PRIMARY) HYPERTENSION Status: Chronic (5) Hypothyroidism Code(s): E03.9 - HYPOTHYROIDISM, UNSPECIFIED Status: Chronic (6) Pulmonary HTN Code(s): I27.20 - PULMONARY HYPERTENSION, UNSPECIFIED Status: Chronic - Plan * TIA- patient is back to her baseline. Awaiting NAKITA * Dyslipidemia- will increase Crestor to whatever her Commercial Management Accountant recommends * Hypokalemia-resolved * HTN- blood pressure is stable
[2020-01-20 15:57] VITALS: TEMP 98.1
[2020-01-20] MEDS: Ubidecarenone 50 MG CAP PO SCH (17:18)
[2020-01-20] MEDS: Cholecalciferol 1,000 UNITS (25 MCG) TAB PO SCH (17:19)
[2020-01-20] MEDS: Apixaban 5 MG TAB PO SCH (17:19)
[2020-01-20 18:06] VITALS: BP 149/65
--- NOTE | 2020-01-20 22:58 | DIS ---
DATE OF ADMISSION: 01/19/2020 DATE OF DISCHARGE: 01/20/2020 PRIMARY CARE PHYSICIAN: Joanne Shook MD DISCHARGE DISPOSITION: Home. DISCHARGE DIAGNOSES: 1. Transient ischemic attack. 2. Atrial fibrillation on Eliquis. 3. Hypertension. 4. Hypothyroidism. 5. Dyslipidemia. DISCHARGE MEDICATIONS: 1. Aspirin 81 mg p.o. daily was added to Eliquis 5 mg p.o. b.i.d. 2. Vitamin D3 of 3000 units p.o. daily. 3. Toprol-XL 25 mg p.o. daily. 4. Levothyroxine 50 mcg p.o. daily. 5. Sertraline 75 mg p.o. daily. 6. Crestor 5 mg p.o. daily. 7. CoQ10 of 200 mg p.o. daily. 8. Amlodipine 2.5 mg p.o. daily. IMAGING DONE DURING THE HOSPITAL STAY: The patient had a CT scan of the brain, which was negative for any acute intracranial abnormality. The patient had bilateral carotid Dopplers, which were negative for any hemodynamically significant stenosis. Had an MRI of the brain showing involutional changes and very severe chronic ischemic white matter changes, otherwise negative and the patient had an echocardiogram, in which the ejection fraction was estimated at 55% to 60%. There was normal right ventricular size and function. No other significant valvular disease. CODE STATUS: Full code. ALLERGIES: TO METRONIDAZOLE, MIRABEGRON, PENICILLIN, SIMVASTATIN, SOLIFENACIN, VESICARE, FLAGYL, TETANUS TOXOID, SULFA, AND MYRBETRIQ. HOSPITAL COURSE: Ms. Silver is a pleasant 74-year-old female, who presented to the emergency room with difficulty word finding as well as some difficulty with her gait. Her symptoms resolved within 24 hours. An MRI of the brain was done which was negative as well as an echo, which was essentially unremarkable. However, she has a history of atrial fibrillation and she is on Eliquis for this. The TIA occurred while she was on Eliquis and she says that she had been compliant with the medication. For this reason, her crime analyst was consulted and there was concern that she might need a transesophageal echo to rule out patent foramen ovale or a left atrial appendage. Unfortunately at the time that the procedure was planned, the machine was down and for this reason, she was discharged home. Baby aspirin was added to Eliquis. She will be seeing Dr. Cassidy in close followup within about a week so that the NAKITA can be performed. Also, her LDL was not at goal. It was 96 and the plan is to increase her Crestor to daily, where she had been taking it just Mondays, Wednesdays, and Fridays. Job ID: [id number]
== END 2020-01-20 17:45 | disposition home or self-care (01) | DRG 69 ==
LOC: ERS 11:41 → 2SE 16:03 → OBSVTOIN 01-19 11:41
PROVIDERS: ADMIT Internal Medicine; ATTEND Internal Medicine
DX: G45.9 Transient cerebral ischemic attack, unspecified (principal); N39.0 Urinary tract infection, site not specified; K57.92 Diverticulitis of intestine, part unspecified, without perforation or abscess without bleeding; I10 Essential (primary) hypertension; E78.5 Hyperlipidemia, unspecified; Z20.828 Contact with and (suspected) exposure to other viral communicable diseases; I27.20 Pulmonary hypertension, unspecified; E89.0 Postprocedural hypothyroidism; E87.6 Hypokalemia; I48.0 Paroxysmal atrial fibrillation; I08.3 Combined rheumatic disorders of mitral, aortic and tricuspid valves; Z23 Encounter for immunization; Z88.3 Allergy status to other anti-infective agents; Z88.0 Allergy status to penicillin; Z88.8 Allergy status to other drugs, medicaments and biological substances; Z90.49 Acquired absence of other specified parts of digestive tract; Z79.899 Other long term (current) drug therapy; Z79.01 Long term (current) use of anticoagulants; Z79.890 Hormone replacement therapy
CPT/HCPCS: 36415; 36416; 70450; 70551; 71045; 80048; 80053; 80061; 81003; 81015; 82607; 82746; 83036; 83690; 83735; 84443; 84484; 85025; 87086; 87324; 87449; 87635; 90471; 90662; 93005; 93306; 93880; G0008; G0378; U0003

== ENCOUNTER 2020-01-22 08:25 | Day surgery (SDC) | payer MEDICARE, BC ==
[2020-01-21 11:26] VITALS: BMI 28.0
[2020-01-22] MEDS ORDERED: PROPOFOL 40 ML ONE (10:37)
--- NOTE | 2020-01-22 15:51 | OP ---
DATE OF PROCEDURE: 01/22/2020 PROCEDURE PERFORMED: Transesophageal echocardiogram. INDICATIONS: This is a 74-year-old woman with a TIA. DESCRIPTION OF PROCEDURE: The patient was taken to the PACU. The patient was sedated by Anesthesiology. A transesophageal probe was placed into the distal esophagus and stomach. Echocardiographic images were obtained. The transesophageal probe was removed. FINDINGS: 1. Normal left ventricular systolic function. 2. Left atrial enlargement. 3. Normal mitral and aortic valves. 4. Moderate mitral regurgitation. 5. Mild aortic regurgitation. 6. Mild tricuspid regurgitation. 7. No thrombus noted in left atrium or left atrial appendage. 8. No PFO was noted by color Doppler or contrast bubble exam. IMPRESSION: No thrombus noted in the left atrium or left atrial appendage and no PFO was present. Job ID: [id number] [facility]
--- NOTE | 2020-01-22 17:32 | EKG ---
Test Reason : PREOP NAKITA Blood Pressure : / mmHG Vent. Rate : 066 BPM Atrial Rate : 066 BPM P-R Int : 144 ms QRS Dur : 078 ms QT Int : 430 ms P-R-T Axes : 000 003 052 degrees QTc Int : 450 ms Normal sinus rhythm Minimal voltage criteria for LVH, may be normal variant Borderline ECG When compared with ECG of 17-JAN-2020 12:00, (Unconfirmed) ST no longer depressed in Lateral leads Nonspecific T wave abnormality has replaced inverted T waves in Lateral leads Confirmed by DR. Bobbi KOVACS ([id number]) on 01/22/2020 5:32:11 PM Referred By: GIGNER Confirmed By:DR. Bobbi KOVACS
== END 2020-01-22 12:20 | disposition home or self-care (01) ==
LOC: CCL 08:25
PROVIDERS: ATTEND Internal Medicine Cardiovascular Disease
PROC: B24BZZ4 Ultrasonography of Heart with Aorta, Transesophageal (ICD-10-PCS; principal; 2020-01-22)
DX: G45.9 Transient cerebral ischemic attack, unspecified (principal); I08.3 Combined rheumatic disorders of mitral, aortic and tricuspid valves; I48.0 Paroxysmal atrial fibrillation; I10 Essential (primary) hypertension; E78.5 Hyperlipidemia, unspecified; E03.9 Hypothyroidism, unspecified; E87.6 Hypokalemia; N39.0 Urinary tract infection, site not specified; K57.92 Diverticulitis of intestine, part unspecified, without perforation or abscess without bleeding; Z79.01 Long term (current) use of anticoagulants; Z79.82 Long term (current) use of aspirin; Z79.899 Other long term (current) drug therapy; Z88.0 Allergy status to penicillin; Z88.1 Allergy status to other antibiotic agents; Z88.2 Allergy status to sulfonamides; Z88.7 Allergy status to serum and vaccine; Z88.8 Allergy status to other drugs, medicaments and biological substances
CPT/HCPCS: 93005; 93010; 93312; J2704

== ENCOUNTER 2020-05-09 09:48 | Emergency (ER) | payer MEDICARE, BC ==
[2020-05-09] MEDS ORDERED: Diltiazem 125 MG/25 ML ONE (09:58)
[2020-05-09 10:34] LABS: #Basophils 0.1 thou/uL (0.0-0.2); #Eosinphils 0.6 thou/uL (0.0-0.7); #Lymphocytes 1.2 thou/uL (1.20-3.40); #Monocytes 0.8 thou/uL (0.11-0.59); #Neutrophils 3.6 thou/uL (1.40-6.50); %Basophils 1.4 % (0.0-1.0); %Eosinophils 9.3 % (0.0-10.0); %Lymphocytes 18.9 % (21.0-51.0); %Monocytes 12.3 % (0.0-10.0); Hemoglobin 13.9 g/dL (12.0-16.0); Mean Corpuscular HGB CONC 33.7 g/dL (32.0-36.0); Mean Corpuscular Hemoglobin 29.3 pg (27.0-31.0); Mean Corpuscular Volume 86.9 fL (78.0-98.0); Mean Platelet Volume 8.7 fL (7.4-10.4); Platelet Count 233 thou/uL (130-400); RBC Distribution Width 13.1 % (11.5-14.5); Red Blood Cell (RBC) Count 4.77 mill/uL (4.20-5.40); White Blood Cell (WBC) Count 6.1 thou/uL (4.8-10.8)
[2020-05-09 10:58] LABS: ALT (SGPT) 14 U/L (8-55); AST (SGOT) 17 U/L (5-34); Albumin 4.2 g/dL (3.4-4.8); Alkaline Phosphatase 43 U/L (40-110); Anion Gap 14 mmol/L (10-20); BUN (Urea Nitrogen) 16 mg/dL (9.8-20.1); Bilirubin, Total 0.4 mg/dL (0.2-1.2); Calc. Creatinine Clearance 0 mL/min (70-130); Calcium 9.8 mg/dL (7.8-10.44); Carbon Dioxide 24 mmol/L (23-31); Chloride 107 mmol/L (98-107); Globulin 2.8 g/dL (2.4-3.5); Glucose 102 mg/dL (83-110); Potassium 3.7 mmol/L (3.5-5.1); Sodium 139 mmol/L (136-145)
[2020-05-09] MEDS ORDERED: PROPOFOL 20 ML ONE (11:17)
== END 2020-05-09 13:01 | disposition home or self-care (01) ==
LOC: ERS 09:48
DX: I48.91 Unspecified atrial fibrillation (principal); E03.9 Hypothyroidism, unspecified; I10 Essential (primary) hypertension; E78.5 Hyperlipidemia, unspecified; Z79.01 Long term (current) use of anticoagulants; Z79.899 Other long term (current) drug therapy
CPT/HCPCS: 71045; 80053; 84484; 85025; 92961; 93005; 96361; 96365; J2704

== ENCOUNTER 2020-08-04 14:10 | Outpatient (CLI) | payer MEDICARE, BC | END 2020-08-04 14:11 | disposition home or self-care (01) | LOC: BICMAMMO 14:10 | PROVIDERS: ATTEND Family Medicine | DX: Z12.31 Encounter for screening mammogram for malignant neoplasm of breast (principal) | CPT/HCPCS: 77063; 77067 ==

== ENCOUNTER 2020-09-07 01:37 | Inpatient (IN) | payer MEDICARE, BC ==
[2020-09-07 02:07] LABS: #Basophils 0.1 thou/uL (0.0-0.2); #Eosinphils 0.5 thou/uL (0.0-0.7); #Lymphocytes 1.8 thou/uL (1.20-3.40); #Monocytes 0.9 thou/uL (0.11-0.59); #Neutrophils 3.9 thou/uL (1.40-6.50); %Basophils 1.3 % (0.0-1.0); %Eosinophils 7.1 % (0.0-10.0); %Lymphocytes 25.1 % (21.0-51.0); %Neutrophils 54.6 % (42.0-75.0); Hemoglobin 13.9 g/dL (12.0-16.0); Mean Corpuscular HGB CONC 32.6 g/dL (32.0-36.0); Mean Corpuscular Volume 88.9 fL (78.0-98.0); Mean Platelet Volume 8.2 fL (7.4-10.4); Platelet Count 245 thou/uL (130-400); RBC Distribution Width 13.4 % (11.5-14.5); Red Blood Cell (RBC) Count 4.81 mill/uL (4.20-5.40); White Blood Cell (WBC) Count 7.1 thou/uL (4.8-10.8)
[2020-09-07 02:35] LABS: ALT (SGPT) 18 U/L (8-55); AST (SGOT) 24 U/L (5-34); Albumin 4.5 g/dL (3.4-4.8); Alkaline Phosphatase 54 U/L (40-110); Anion Gap 13 mmol/L (10-20); BUN (Urea Nitrogen) 22 mg/dL (9.8-20.1); Bilirubin, Total 0.3 mg/dL (0.2-1.2); Calc. Creatinine Clearance 0 mL/min (70-130); Calcium 10.8 mg/dL (7.8-10.44); Carbon Dioxide 24 mmol/L (23-31); Chloride 105 mmol/L (98-107); Globulin 2.9 g/dL (2.4-3.5); Glucose 105 mg/dL (83-110); Lipase 83 U/L (8-78); Potassium 4.2 mmol/L (3.5-5.1); Protein, Total 7.4 g/dL (5.8-8.1); Sodium 138 mmol/L (136-145)
[2020-09-07] MEDS ORDERED: Acetaminophen 500 MG TAB ONE (04:23)
[2020-09-07] MEDS ORDERED: Diltiazem 125 MG/25 ML ONE (04:28)
[2020-09-07] MEDS ORDERED: Ondansetron PF 4 MG/2 ML Vial IVP PRN (08:24)
[2020-09-07] MEDS ORDERED: Ondansetron ODT 4 MG TAB PO PRN (08:24)
[2020-09-07] MEDS ORDERED: Acetaminophen 325 MG TAB PO PRN (08:24)
[2020-09-07 12:09] VITALS: BMI 29.3
[2020-09-07] MEDS ORDERED: Apixaban 2.5 MG TAB PO SCH (15:45)
[2020-09-07 16:37] LABS: Bacteria/HPF None Seen HPF (None Seen); Bilirubin Negative (Negative); Blood, Urine 1+ (Negative); Clarity Clear (Clear); Glucose, Urine (Dipstick) Normal (Negative); Ketone, Urine Negative (Negative); Leukocyte Negative Leu/uL (Negative); Nitrite Negative (Negative); Protein, Urine (Dipstick) 70 mg/dL (Neg-Trace); Specific Gravity, Urine 1.023 (1.002-1.036); Squamous Epithelial None Seen HPF (0-3); Urobilinogen Normal mg/dL (Less than 2); WBC/HPF 0-3 HPF (0-3); pH, Urine 6.5 (5.0-9.0)
[2020-09-07 16:41] LABS: Urine Culture Reflex No No
[2020-09-07] MEDS ORDERED: Flecainide 50 MG TAB PO SCH ×2 (16:45→21:00)
[2020-09-07] MEDS ORDERED: Diltiazem HCl 125 MG, Admixture Fee 1 EACH in Sodium Chloride 0.9% 100 ML IVPB SCH (17:00)
[2020-09-07] MEDS: Rosuvastatin 5 MG TAB PO SCH (20:30)
[2020-09-07] MEDS: Apixaban 5 MG TAB PO SCH (20:31)
[2020-09-07] MEDS: Flecainide 50 MG TAB PO SCH (20:31)
[2020-09-07] MEDS: Aspirin Chewable 81 MG TAB PO SCH (20:31)
[2020-09-08 05:03] LABS: #Basophils 0.1 thou/uL (0.0-0.2); #Eosinphils 0.3 thou/uL (0.0-0.7); #Lymphocytes 1.8 thou/uL (1.20-3.40); #Monocytes 0.9 thou/uL (0.11-0.59); #Neutrophils 3.9 thou/uL (1.40-6.50); %Basophils 1.4 % (0.0-1.0); %Eosinophils 4.3 % (0.0-10.0); %Lymphocytes 26.3 % (21.0-51.0); %Monocytes 12.3 % (0.0-10.0); %Neutrophils 55.8 % (42.0-75.0); Hemoglobin 13.8 g/dL (12.0-16.0); Mean Corpuscular HGB CONC 33.3 g/dL (32.0-36.0); Mean Corpuscular Hemoglobin 29.3 pg (27.0-31.0); Mean Corpuscular Volume 87.8 fL (78.0-98.0); Mean Platelet Volume 8.4 fL (7.4-10.4); Platelet Count 223 thou/uL (130-400); RBC Distribution Width 13.5 % (11.5-14.5); Red Blood Cell (RBC) Count 4.73 mill/uL (4.20-5.40)
[2020-09-08 05:28] LABS: Anion Gap 11 mmol/L (10-20); BUN (Urea Nitrogen) 14 mg/dL (9.8-20.1); Calc. Creatinine Clearance 90 mL/min (70-130); Calcium 10.2 mg/dL (7.8-10.44); Carbon Dioxide 23 mmol/L (23-31); Chloride 107 mmol/L (98-107); Glucose 100 mg/dL (83-110); Lipase 31 U/L (8-78); Potassium 3.1 mmol/L (3.5-5.1); Sodium 138 mmol/L (136-145)
[2020-09-08] MEDS: Levothyroxine Sodium 50 MCG TAB PO SCH (06:03)
[2020-09-08] MEDS: Apixaban 5 MG TAB PO SCH ×2 (08:32→21:34)
[2020-09-08] MEDS: Flecainide 50 MG TAB PO SCH ×2 (08:32→21:34)
[2020-09-08] MEDS: Potassium Chloride 20 MEQ in Premix Bag 1 BAG IVPB SCH ×2 (09:42→16:50)
[2020-09-08] MEDS ORDERED: PROPOFOL 40 ML ONE (13:58)
[2020-09-08] MEDS ORDERED: PROPOFOL 200 MG/20 ML VIAL ONE (14:35)
[2020-09-08] MEDS: Aspirin Chewable 81 MG TAB PO SCH (21:34)
[2020-09-08] MEDS: Rosuvastatin 5 MG TAB PO SCH (21:34)
[2020-09-09 00:26] LABS: SARS-CoV-2 NAA Rapid Test Not Detected (NotDetected)
[2020-09-09 04:41] LABS: #Basophils 0.1 thou/uL (0.0-0.2); #Eosinphils 0.3 thou/uL (0.0-0.7); #Lymphocytes 1.8 thou/uL (1.20-3.40); #Monocytes 0.8 thou/uL (0.11-0.59); #Neutrophils 4.6 thou/uL (1.40-6.50); %Basophils 0.7 % (0.0-1.0); %Eosinophils 4.4 % (0.0-10.0); %Lymphocytes 24.1 % (21.0-51.0); %Monocytes 9.9 % (0.0-10.0); Mean Corpuscular HGB CONC 33.5 g/dL (32.0-36.0); Mean Corpuscular Hemoglobin 29.7 pg (27.0-31.0); Mean Corpuscular Volume 88.8 fL (78.0-98.0); Mean Platelet Volume 8.5 fL (7.4-10.4); Platelet Count 217 thou/uL (130-400); RBC Distribution Width 13.6 % (11.5-14.5); Red Blood Cell (RBC) Count 4.37 mill/uL (4.20-5.40); White Blood Cell (WBC) Count 7.6 thou/uL (4.8-10.8)
[2020-09-09 05:02] LABS: Anion Gap 12 mmol/L (10-20); BUN (Urea Nitrogen) 22 mg/dL (9.8-20.1); Calc. Creatinine Clearance 77 mL/min (70-130); Carbon Dioxide 22 mmol/L (23-31); Chloride 108 mmol/L (98-107); Glucose 95 mg/dL (83-110); Potassium 3.6 mmol/L (3.5-5.1); Sodium 138 mmol/L (136-145)
[2020-09-09] MEDS: Levothyroxine Sodium 50 MCG TAB PO SCH (05:20)
[2020-09-09] MEDS: Flecainide 50 MG TAB PO SCH (08:51)
[2020-09-09] MEDS: Apixaban 5 MG TAB PO SCH (08:52)
[2020-09-09 09:35] VITALS: BP 150/70; TEMP 98.9
== END 2020-09-09 11:03 | disposition home or self-care (01) | DRG 310 ==
LOC: ERS 01:37 → ERHOLD 04:33 → 2NO 11:58
PROVIDERS: ADMIT Internal Medicine; ATTEND Nurse Practitioner Family
PROC: 5A2204Z Restoration of Cardiac Rhythm, Single (ICD-10-PCS; principal; 2020-09-08)
PROC: B24BZZ4 Ultrasonography of Heart with Aorta, Transesophageal (ICD-10-PCS; 2020-09-08)
DX: I48.4 Atypical atrial flutter (principal); I10 Essential (primary) hypertension; E03.9 Hypothyroidism, unspecified; E78.5 Hyperlipidemia, unspecified; F41.9 Anxiety disorder, unspecified; R35.0 Frequency of micturition; F32.9 Major depressive disorder, single episode, unspecified; I44.30 Unspecified atrioventricular block; K21.9 Gastro-esophageal reflux disease without esophagitis; I48.0 Paroxysmal atrial fibrillation; Z20.822 Contact with and (suspected) exposure to COVID-19; E87.6 Hypokalemia; Z86.73 Personal history of transient ischemic attack (TIA), and cerebral infarction without residual deficits; Z79.01 Long term (current) use of anticoagulants; Z88.0 Allergy status to penicillin; Z88.2 Allergy status to sulfonamides; Z88.1 Allergy status to other antibiotic agents; Z88.8 Allergy status to other drugs, medicaments and biological substances; Z88.7 Allergy status to serum and vaccine; Z79.82 Long term (current) use of aspirin; Z79.899 Other long term (current) drug therapy; Z90.710 Acquired absence of both cervix and uterus; Z90.89 Acquired absence of other organs
CPT/HCPCS: 36415; 71045; 80048; 80053; 81001; 83690; 83735; 84443; 84484; 85025; 92960; 93005; 93010; 96365; 96366; 96375; 96376; J2704; J3480; J3490; U0002; U0005

== ENCOUNTER 2020-09-30 05:43 | Observation (INO) | payer MEDICARE, BC ==
[2020-09-29 11:59] VITALS: BMI 29.0
[2020-09-30] MEDS ORDERED: Lidocaine 1% (PF) 30 ML VIAL ONE (06:36)
[2020-09-30] MEDS ORDERED: Heparin 25,000 units/D5W 500 ML ONE (06:36)
[2020-09-30] MEDS ORDERED: Heparin 10,000 UNITS/ 10 ML VIAL ONE (06:36)
[2020-09-30] MEDS ORDERED: Isoproterenol 0.2 MG/1 ML AMP ONE ×2 (06:36→11:09)
[2020-09-30] MEDS ORDERED: Midazolam HCl 2 mg/2 ml Vial ONE (07:07)
[2020-09-30] MEDS ORDERED: Propofol 1,000 MG/100 ML VIAL IV ONE (07:07)
[2020-09-30] MEDS ORDERED: Ketamine 50 MG/ML (10ML VIAL) ONE (07:07)
[2020-09-30] MEDS ORDERED: Fentanyl 100 MCG/2 ML VIAL ONE (07:07)
[2020-09-30] MEDS ORDERED: Phenylephrine 10 MG/ML VIAL ONE (07:08)
[2020-09-30] MEDS ORDERED: PROPOFOL 200 MG/20 ML VIAL ONE (07:51)
[2020-09-30] MEDS ORDERED: Dexamethasone 20 MG/5 ML VIAL ONE (07:51)
[2020-09-30] MEDS ORDERED: Rocuronium Bromide 10 MG/ML (10ML VIAL) ONE (07:51)
[2020-09-30] MEDS ORDERED: Ondansetron PF 4 MG/2 ML Vial ONE (07:51)
[2020-09-30] MEDS ORDERED: Protamine Sulfate 50 MG/5 ML VIAL ONE (12:31)
[2020-09-30] MEDS ORDERED: Meperidine HCl/PF 25 MG/ML VIAL ONE (12:43)
[2020-09-30] MEDS ORDERED: Acetaminophen/Codeine 30-300mg Tablet PO PRN ×2 (13:00)
[2020-09-30] MEDS ORDERED: Ketorolac Tromethamine 30 MG/ML VIAL IVP PRN (13:23)
[2020-09-30] MEDS ORDERED: Furosemide 40 MG TAB PO PRN (13:25)
[2020-09-30] MEDS ORDERED: Potassium Chloride 20 MEQ TAB PO PRN (13:26)
[2020-09-30] MEDS ORDERED: Cephalexin 250 MG CAP PO SCH (15:00)
[2020-09-30] MEDS: Sucralfate 1 GM TAB PO SCH (17:58)
[2020-09-30] MEDS ORDERED: Bisacodyl 5 MG TAB PO PRN (20:45)
[2020-09-30] MEDS ORDERED: Calcium Carbonate 600 MG + Vit D TAB PO SCH (21:00)
[2020-09-30] MEDS: Apixaban 5 MG TAB PO SCH (21:03)
[2020-10-01] MEDS: Sucralfate 1 GM TAB PO SCH ×3 (00:08→13:46)
[2020-10-01] MEDS ORDERED: Levothyroxine Sodium 50 MCG TAB PO SCH (06:00)
[2020-10-01] MEDS ORDERED: Multivit, Therapeutic 1 TAB PO SCH (09:00)
[2020-10-01] MEDS ORDERED: Aspirin Chewable 81 MG TAB PO SCH (09:00)
[2020-10-01] MEDS ORDERED: Amlodipine 5 MG TAB PO SCH (09:00)
[2020-10-01 09:37] VITALS: TEMP 99.8
[2020-10-01] MEDS: Apixaban 5 MG TAB PO SCH (09:39)
[2020-10-01 12:34] VITALS: BP 152/60
[2020-10-01] MEDS ORDERED: Rosuvastatin 5 MG TAB PO SCH (21:00)
== END 2020-10-01 14:20 | disposition home or self-care (01) ==
LOC: CCL 05:43 → 2SW 14:32
PROVIDERS: ADMIT Internal Medicine Cardiovascular Disease; ATTEND Internal Medicine Cardiovascular Disease
PROC: 02583ZZ Destruction of Conduction Mechanism, Percutaneous Approach (ICD-10-PCS; principal; 2020-09-30)
PROC: 02K83ZZ Map Conduction Mechanism, Percutaneous Approach (ICD-10-PCS; 2020-09-30)
PROC: 4A023FZ Measurement of Cardiac Rhythm, Percutaneous Approach (ICD-10-PCS; 2020-09-30)
PROC: 4A0234Z Measurement of Cardiac Electrical Activity, Percutaneous Approach (ICD-10-PCS; 2020-09-30)
DX: I48.19 Other persistent atrial fibrillation (principal); I48.92 Unspecified atrial flutter; E87.70 Fluid overload, unspecified; I10 Essential (primary) hypertension; Z86.73 Personal history of transient ischemic attack (TIA), and cerebral infarction without residual deficits; Z79.01 Long term (current) use of anticoagulants; Z79.82 Long term (current) use of aspirin; Z79.899 Other long term (current) drug therapy; Z88.0 Allergy status to penicillin; Z88.1 Allergy status to other antibiotic agents; Z88.2 Allergy status to sulfonamides; Z88.7 Allergy status to serum and vaccine; Z88.8 Allergy status to other drugs, medicaments and biological substances
CPT/HCPCS: 76942; 85347 ×2; 92960; 93005 ×2; 93613; 93622; 93623; 93655; 93656; 93662; C1732 ×2; C1759; 93010; G0378; J1100; J1644; J2001; J2175; J2250; J2370; J2405; J2704; J2720; J3010

== ENCOUNTER 2020-10-08 13:22 | Outpatient (CLI) | payer MEDICARE, BC ==
[2020-09-25 12:15] LABS: Hemoglobin 12.1 g/dL (12.0-15.5); Mean Corpuscular HGB CONC 32.8 g/dL (32.0-36.0); Mean Corpuscular Volume 88.5 fl (81.6-98.3); Mean Platelet Volume 10.7 fl (7.4-10.4); Platelet Count 248 10x3/uL (150-450); RBC Distribution Width 14.5 % (11.5-14.5); Red Blood Cell (RBC) Count 4.17 10x6/uL (3.90-5.03); White Blood Cell (WBC) Count 5.9 10x3/uL (3.5-10.5)
[2020-09-25 12:32] LABS: PTT 27.9 sec (22.0-33.0); Prothrombin Time 10.9 sec (9.5-12.1)
[2020-09-25 12:35] LABS: Anion Gap 13 mmol/L (10-20); BUN (Urea Nitrogen) 18 mg/dL (9.8-20.1); Calc. Creatinine Clearance 0 mL/min (70-130); Calcium 10.4 mg/dL (7.8-10.44); Carbon Dioxide 26 mmol/L (23-31); Chloride 104 mmol/L (98-107); Glucose 63 mg/dL (83-110); Potassium 3.7 mmol/L (3.5-5.1); Sodium 139 mmol/L (136-145)
[2020-10-08 14:26] LABS: Hemoglobin 11.4 g/dL (12.0-15.5); Mean Corpuscular HGB CONC 31.9 g/dL (32.0-36.0); Mean Corpuscular Hemoglobin 28.7 pg (27.0-33.0); Mean Corpuscular Volume 89.9 fl (81.6-98.3); Platelet Count 290 10x3/uL (150-450); RBC Distribution Width 14.3 % (11.5-14.5); Red Blood Cell (RBC) Count 3.97 10x6/uL (3.90-5.03); White Blood Cell (WBC) Count 6.9 10x3/uL (3.5-10.5)
[2020-10-08 14:34] LABS: PTT 24.1 sec (22.0-33.0); Prothrombin Time 10.6 sec (9.5-12.1)
[2020-10-08 14:45] LABS: Anion Gap 12 mmol/L (10-20); BUN (Urea Nitrogen) 17 mg/dL (9.8-20.1); Calc. Creatinine Clearance 0 mL/min (70-130); Calcium 10.4 mg/dL (7.8-10.44); Carbon Dioxide 25 mmol/L (23-31); Chloride 108 mmol/L (98-107); Glucose 88 mg/dL (83-110); Potassium 3.8 mmol/L (3.5-5.1); Sodium 141 mmol/L (136-145)
== END 2020-10-08 13:23 ==
LOC: LABBT 13:22
PROVIDERS: ATTEND Internal Medicine Cardiovascular Disease
DX: Z01.818 Encounter for other preprocedural examination (principal); I48.91 Unspecified atrial fibrillation
CPT/HCPCS: 80048; 85027; 85610; 85730; 93005; 93010

== ENCOUNTER 2020-10-09 11:35 | Day surgery (SDC) | payer MEDICARE, BC ==
[2020-10-08 11:37] VITALS: BMI 29.2
[2020-10-09] MEDS ORDERED: PROPOFOL 200 MG/20 ML VIAL ONE (13:13)
== END 2020-10-09 14:52 | disposition home or self-care (01) ==
LOC: CCL 11:35
PROVIDERS: ATTEND Internal Medicine Cardiovascular Disease
PROC: 5A2204Z Restoration of Cardiac Rhythm, Single (ICD-10-PCS; principal; 2020-10-09)
DX: I48.19 Other persistent atrial fibrillation (principal); I44.0 Atrioventricular block, first degree; I48.92 Unspecified atrial flutter; I10 Essential (primary) hypertension; E89.0 Postprocedural hypothyroidism; Z86.73 Personal history of transient ischemic attack (TIA), and cerebral infarction without residual deficits; Z79.01 Long term (current) use of anticoagulants; Z79.82 Long term (current) use of aspirin; Z79.899 Other long term (current) drug therapy; Z88.0 Allergy status to penicillin; Z88.1 Allergy status to other antibiotic agents; Z88.2 Allergy status to sulfonamides; Z88.7 Allergy status to serum and vaccine; Z88.8 Allergy status to other drugs, medicaments and biological substances
CPT/HCPCS: 92960; 93005; 93010; J2704

== ENCOUNTER 2020-10-28 08:29 | Day surgery (SDC) | payer MEDICARE, BC ==
[2020-10-27 11:16] VITALS: BMI 29.2
== END 2020-10-28 12:22 | disposition home or self-care (01) ==
LOC: CCL 08:29
PROVIDERS: ATTEND Internal Medicine Cardiovascular Disease
PROC: 5A2204Z Restoration of Cardiac Rhythm, Single (ICD-10-PCS; principal; 2020-10-28)
DX: I48.19 Other persistent atrial fibrillation (principal); I48.4 Atypical atrial flutter; E89.0 Postprocedural hypothyroidism; I08.3 Combined rheumatic disorders of mitral, aortic and tricuspid valves; K21.9 Gastro-esophageal reflux disease without esophagitis; E78.5 Hyperlipidemia, unspecified; I10 Essential (primary) hypertension; Z86.73 Personal history of transient ischemic attack (TIA), and cerebral infarction without residual deficits; Z79.01 Long term (current) use of anticoagulants; Z79.82 Long term (current) use of aspirin; Z79.899 Other long term (current) drug therapy; Z88.0 Allergy status to penicillin; Z88.1 Allergy status to other antibiotic agents; Z88.2 Allergy status to sulfonamides; Z88.8 Allergy status to other drugs, medicaments and biological substances; Z88.7 Allergy status to serum and vaccine
CPT/HCPCS: 36415; 80048; 85027; 85610; 85730; 92960; 93005; 93010; J2704